=== PATIENT | male | born 1945 | race Caucasian/White ===

== ENCOUNTER 2017-09-16 11:44 | Day surgery (SDC) | payer OTHER, MEDICARE ==
[~2017-09-16] VITALS: Ht 175.3 cm; Wt 65.8 kg
[~2017-09-16 11:44] MED LIST: B-12; COLE1TAB PO; FISH OIL; LANS30CA60 PO; MULT-516 PO; VITAMIN C
[2017-09-16] MEDS ORDERED: LIDOCAINE-MPF 1%, 2ML ONE (12:06)
[2017-09-16] MEDS ORDERED: LACTATED RINGERS 1,000 ML IV SCH ×2 (12:06→19:30)
[2017-09-16 12:22] VITALS: BP 151/92
[2017-09-16] MEDS ORDERED: ONDANSETRON ODT 8 MG PO ONE (12:30)
[2017-09-16] MEDS ORDERED: LIDOCAINE-MPF 1%, 2ML INFIL ONE (12:30)
[2017-09-16] MEDS ORDERED: GABAPENTIN 300 MG CAPSULE PO ONE (12:30)
[2017-09-16] MEDS ORDERED: ACETAMINOPHEN 500 MG TABLET PO ONE (12:30)
[2017-09-16] MEDS ORDERED: FENTANYL PF 250 MCG/5ML ONE (15:29)
[2017-09-16] MEDS ORDERED: BUPIVACAINE/PF 0.5% ONE (15:44)
[2017-09-16] MEDS ORDERED: CEFAZOLIN 1,000 MG ONE (16:20)
[2017-09-16] MEDS ORDERED: GLYCOPYRROLATE 0.2MG/1ML, 5ML ONE (16:20)
[2017-09-16] MEDS ORDERED: ROCURONIUM 10 MG/ML,10ML ONE (16:20)
[2017-09-16] MEDS ORDERED: NEOSTIGMINE 1 MG/ML, 10ML ONE (16:20)
[2017-09-16] MEDS ORDERED: PROPOFOL 10 MG/ML, 20ML ONE (16:20)
[2017-09-16] MEDS ORDERED: ONDANSETRON 2MG/ML, 2ML ONE (16:20)
[2017-09-16] MEDS ORDERED: DEXAMETHASONE 4 MG/ML, 1ML ONE (16:20)
[2017-09-16] MEDS ORDERED: LABETALOL 5MG/ML, 20ML ONE (16:20)
[2017-09-16] MEDS ORDERED: FENTANYL PF 100 MCG/2ML IV PRN (17:00)
[2017-09-16] MEDS ORDERED: MEPERIDINE/PF 25MG/0.5ML IVPush PRN (17:00)
[2017-09-16] MEDS ORDERED: OXYcodone 5 MG/5 ML ORAL.SOL UDC PO PRN (17:00)
[2017-09-16] MEDS ORDERED: PROMETHAZINE 12.5 MG SUPP PR PRN (17:00)
[2017-09-16] MEDS ORDERED: MORPHINE SULFATE 4 MG/ML, 1ML IVPush PRN (17:00)
[2017-09-16] MEDS ORDERED: HALOPERIDOL 5 MG/ML IV PRN (17:00)
[2017-09-16] MEDS ORDERED: PROMETHAZINE 25 MG SUPP PR PRN (17:00)
[2017-09-16] MEDS ORDERED: hydrALAzine 20 MG/ML, 1ML IV PRN (17:00)
[2017-09-16] MEDS ORDERED: LORazepam 2 MG/ML, 1ML IVPush PRN (17:00)
[2017-09-16] MEDS ORDERED: LABETALOL 5MG/ML, 20ML IV PRN (17:00)
[2017-09-16] MEDS ORDERED: HYDROmorphone 1 MG/ML, 1ML IV PRN (17:00)
[2017-09-16] MEDS ORDERED: ALBUTEROL SULFATE 2.5 MG/3 ML NPPB PRN (17:00)
[2017-09-16] MEDS ORDERED: PROMETHAZINE 25 MG/ML, 1ML IV PRN (17:00)
[2017-09-16] MEDS ORDERED: FENTANYL PF 100 MCG/2ML ONE (18:15)
[2017-09-16] MEDS ORDERED: OXYcodone 5 MG/5 ML ORAL.SOL UDC ONE (18:15)
[2017-09-16] MEDS ORDERED: OXYcodone/APAP 5/325MG TABLET PO PRN (19:30)
[2017-09-16] MEDS ORDERED: ONDANSETRON 2MG/ML, 2ML IVPush PRN (19:30)
[2017-09-16] MEDS ORDERED: HYDROmorphone 2 MG/ML, 1ML IV PRN (19:30)
[2017-09-16] MEDS ORDERED: ONDANSETRON ODT 4 MG ONE (21:30)
== END 2017-09-16 23:58 | disposition home or self-care (01) ==
LOC: OUT 11:44 → 4NOR 18:53 → OUT 23:58
PROVIDERS: ATTEND Surgery
DX: K40.90 Unilateral inguinal hernia, without obstruction or gangrene, not specified as recurrent (principal); Z90.49 Acquired absence of other specified parts of digestive tract; K21.9 Gastro-esophageal reflux disease without esophagitis; Z88.0 Allergy status to penicillin; Z88.8 Allergy status to other drugs, medicaments and biological substances; Z98.890 Other specified postprocedural states; Z53.9 Procedure and treatment not carried out, unspecified reason
CPT/HCPCS: 49505; C1781; J0690; J1100; J2405; J2704; J2710; J3010; J3490; J7120; Q0162